=== PATIENT | male | born 1960 | race Two or more races ===

== ENCOUNTER 2019-10-26 13:31 | Emergency (ER) | payer BC ==
[~2019-10-26] VITALS: Ht 170.2 cm; Wt 72.6 kg
--- NOTE | 2019-10-26 13:46 | Emergency Room Report ---
History of Present Illness General Chief Complaint: Abdominal Pain Source: Patient Present Illness HPI Patient 59-year-old male presents after sudden onset of right-sided flank pain. Patient reports having acute onset of symptoms. Pain was located in the right lower abdomen. He reports having prior history of kidney stones. He also had prior right inguinal hernia surgery. Reports having increased pain after urinating. Denies any fever. Reports having severe pain to the right lower abdomen. This radiated to his testicle. Denies any hematuria or dysuria. He reports having allergy to penicillin. Allergies: Coded Allergies: PENICILLINS (Unverified Allergy, Unknown, 10/26/19) Uncoded Allergies: PENICILLIN (Allergy, Unknown, 10/26/19) Patient History Past Medical History: see triage record Reviewed Nursing Documentation: PMH: Agreed; PSxH: Agreed Nursing Documentation-PMH Past Medical History: No History, Except For Review of Systems All Other Systems: negative except mentioned in HPI Physical Exam Sp02 EP Interpretation: reviewed, normal General Appearance: normal inspection, well appearing, no apparent distress, alert, GCS 15 Head: atraumatic ENT: normal ENT inspection, hearing grossly normal, normal voice Neck: normal inspection, full range of motion, supple, no bony tend Respiratory: normal inspection, lungs clear, normal breath sounds, no respiratory distress, no retraction, no wheezing Cardiovascular #1: regular rate, rhythm, no edema Gastrointestinal: normal inspection, normal bowel sounds, non tender, soft, no guarding, no hernia Genitourinary: no CVA tenderness Musculoskeletal: normal inspection, back normal, normal range of motion Neurologic: alert, motor strength/tone normal, improvement rn III-XII nml as tested, EOM palsy, oriented x3, responsive, speech normal, normal inspection Psychiatric: normal inspection, judgement/insight normal, mood/affect normal Skin: no rash Medical Decision Making Diagnostic Impression: Primary Impression: Kidney stone on right side ER Course Patient presented for flank pain. Differential diagnosis included was not limited to pneumonia, renal stone, rib fracture, pulmonary embolism, ulcer, enteritis, pyelonephritis among others. Given the patient's acute onset of symptoms appears to be possibly kidney stone versus testicular pathology. Patient's because of complexity of patient's case laboratory tests and imaging studies were ordered.Per patient history had prior history of kidney stones. Given location of pain this is likely UVJ stone. Patient was given IV pain medications.CT imaging showed approximately 3 mm UVJ stone. Mild to moderate hydronephrosis. Patient was given Flomax as well as IV Toradol and morphine. He was noted to have improvement in his pain. Urinalysis showed some mild evidence of urinary infection. Patient appears to be stable for outpatient management. He was advised urology follow-up. This medical record is generated with [employer] network strategist software. There may be some network strategist discrepancies related to use of this software patient was advised to return if worse Labs Test 10/26/19 13:48 10/26/19 15:35 White Blood Count 9.5 K/UL (4.8-10.8) Red Blood Count 4.87 M/UL (4.70-6.10) Hemoglobin 15.0 G/DL (14.2-18.0) Hematocrit 43.3 % (42.0-52.0) Mean Corpuscular Volume 89 FL (80-99) Mean Corpuscular Hemoglobin 30.7 PG (27.0-31.0) Mean Corpuscular Hemoglobin Concent 34.5 G/DL (32.0-36.0) Red Cell Distribution Width 11.1 % (11.6-14.8) Platelet Count 225 K/UL (150-450) Mean Platelet Volume 9.0 FL (6.5-10.1) Neutrophils (%) (Auto) 50.0 % (45.0-75.0) Lymphocytes (%) (Auto) 37.2 % (20.0-45.0) Monocytes (%) (Auto) 8.3 % (1.0-10.0) Eosinophils (%) (Auto) 3.1 % (0.0-3.0) Basophils (%) (Auto) 1.4 % (0.0-2.0) Prothrombin Time 10.5 SEC (9.30-11.50) Prothromb Time International Ratio 1.0 (0.9-1.1) Activated Partial Thromboplast Time 23 SEC (23-33) Sodium Level 139 MMOL/L (136-145) Potassium Level 3.2 MMOL/L (3.5-5.1) Chloride Level 103 MMOL/L (98-107) Carbon Dioxide Level 24 MMOL/L (21-32) Anion Gap 12 mmol/L (5-15) Blood Urea Nitrogen 17 mg/dL (7-18) Creatinine 1.1 MG/DL (0.55-1.30) Estimat Glomerular Filtration Rate > 60 mL/min (>60) Glucose Level 127 MG/DL (74-106) Calcium Level 9.0 MG/DL (8.5-10.1) Total Bilirubin 0.4 MG/DL (0.2-1.0) Aspartate Amino Transf (AST/SGOT) 17 U/L (15-37) Alanine Aminotransferase (ALT/SGPT) 33 U/L (12-78) Alkaline Phosphatase 64 U/L (46-116) Total Protein 7.9 G/DL (6.4-8.2) Albumin 4.0 G/DL (3.4-5.0) Globulin 3.9 g/dL Albumin/Globulin Ratio 1.0 (1.0-2.7) Lipase 182 U/L (73-393) Urine Color Pale yellow Urine Appearance Clear Urine pH 7 (4.5-8.0) Urine Specific [place] 1.005 (1.005-1.035) Urine Protein Negative (NEGATIVE) Urine Glucose (UA) Negative (NEGATIVE) Urine Ketones Negative (NEGATIVE) Urine Blood 2+ (NEGATIVE) Urine Nitrite Negative (NEGATIVE) Urine Bilirubin Negative (NEGATIVE) Urine Urobilinogen Normal MG/DL (0.0-1.0) Urine Leukocyte Esterase 1+ (NEGATIVE) Urine RBC 2-4 /HPF (0 - 0) Urine WBC 2-4 /HPF (0 - 0) Urine Squamous Epithelial Cells Occasional /LPF Urine Bacteria Occasional /HPF (NONE) Status: improved Disposition: HOME, SELF-CARE Condition: Stable Scripts Trimethoprim/Sulfamethoxazole 160/800* (BACTRIM DS TABLET*) 1 Each Tablet 1 TAB ORAL Q12H, #14 TAB 0 Refills Prov: Gabriele Alvarado MD 10/26/19 Tamsulosin HCl (Flomax) 0.4 Mg Cap.er.24h 0.4 MG ORAL DAILY, #14 CAP Prov: Gabriele Alvarado MD 10/26/19 Ibuprofen* (MOTRIN*) 600 Mg Tablet 600 MG ORAL Q6H PRN for For Pain, #20 TAB 0 Refills Prov: Gabriele Alvarado MD 10/26/19 Hydrocodone Bit/Acetaminophen 5-325* (NORCO 5-325*) 1 Each Tablet 1 TAB ORAL Q4H PRN for For Pain, #12 TAB 0 Refills Prov: Gabriele Alvardao MD 10/26/19 Gabriele Alvarado MD Oct 26, 2019 13:46
[2019-10-26] MEDS ORDERED: Ketorolac 30mg Inj IV ONE (14:00)
[2019-10-26] MEDS ORDERED: Morphine Sulfate 4mg/ml Inj (IV USE ONLY) IVP ONE (14:00)
[2019-10-26 14:06] VITALS: BP 167/87
[2019-10-26 14:07] LABS: BASOPHILS % (AUTO) 1.4 % (0.0-2.0); EOSINOPHILS % (AUTO) 3.1 % (0.0-3.0); HEMATOCRIT 43.3 % (42.0-52.0); LYMPHOCYTES % (AUTO) 37.2 % (20.0-45.0); MEAN CORPUSCULAR VOLUME 89 FL (80-99); MONOCYTES % (AUTO) 8.3 % (1.0-10.0); PLATELET COUNT 225 K/UL (150-450); RED BLOOD COUNT 4.87 M/UL (4.70-6.10); RED CELL DISTRIBUTION WIDTH 11.1 % (11.6-14.8); WHITE BLOOD COUNT 9.5 K/UL (4.8-10.8)
--- NOTE | 2019-10-26 14:07 | NUR ---
ED Nurse Note:pt. came from home with abdominal pain nausea vomiting, crying in pain, A/Ox4 ambulatory, VSS, given pain meds and iv fluids
[2019-10-26 14:20] LABS: ANION GAP 12 mmol/L (5-15); BLOOD UREA NITROGEN 17 mg/dL (7-18); CARBON DIOXIDE 24 MMOL/L (21-32); CHLORIDE 103 MMOL/L (98-107); CREATININE 1.1 MG/DL (0.55-1.30); POTASSIUM 3.2 MMOL/L (3.5-5.1); SODIUM 139 MMOL/L (136-145)
[2019-10-26 14:25] LABS: ALANINE AMINOTRANSFERASE 33 U/L (12-78); ALKALINE PHOSPHATASE 64 U/L (46-116); ASPARTATE AMINO TRANSFERASE 17 U/L (15-37); BILIRUBIN,TOTAL 0.4 MG/DL (0.2-1.0)
--- NOTE | 2019-10-26 14:29 | NUR ---
ED Nurse Note:pt. went to CT scan
--- NOTE | 2019-10-26 14:30 | NUR ---
ED Nurse Note:pt is back from CT scan
[2019-10-26] MEDS ORDERED: IBUPROFEN600 MG ORAL (15:07)
[2019-10-26] MEDS ORDERED: BACTRIM DS TAB1 EAC1 ORAL (15:07)
[2019-10-26] MEDS ORDERED: FLOMAX0.4 MG ORAL (15:07)
[2019-10-26] MEDS ORDERED: NORCO 5-325 TA1 EACH ORAL (15:07)
[2019-10-26 15:35] VITALS: BP 145/78
--- NOTE | 2019-10-26 15:35 | NUR ---
ER DISCHARGE NOTE: Patient is cleared to be discharged per ERMD, pt is aox4, on room air, with stable vital signs. pt was given dc and prescription instructions, pt was able to verbalize understanding, pt id band and iv site removed without complications. pt is able to ambulate with steady gait. pt took all belongings.
--- NOTE | 2019-10-26 15:44 | Diagnostic Imaging Report ---
INDICATION: Abdominal pain TECHNIQUE: Continuous helical transaxial imaging of the abdomen and pelvis was obtained from the lung bases to the pubic symphysis. No intravenous contrast was administered. Coronal 2-D reformats were also obtained. Automatic Exposure Control was utilized. Total Dose length Product (DLP): 1100.[address] Dose Index Volume (CTDIvol): 18.2 mGy Comparison: none FINDINGS: Mild posterior basal reticulation demonstrated consistent with atelectasis. There is a small hiatal hernia. Evaluation of solid organs is limited on non contrast imaging. Liver: Normal Gallbladder/biliary system: No gallstones are identified. No intrahepatic or extrahepatic biliary ductal dilatation identified. Pancreas: Normal Spleen: Normal Kidneys: There is a 4 mm stone in the distal right ureter at the UVJ associated with mild to moderate hydronephrosis. The right kidney is malrotated. There is periureteral and perinephric stranding. Other punctate nonobstructive stones demonstrated within the calyces of the right kidney. The left kidney is unremarkable. Bones: Normal. There are diverticula throughout the colon without definite evidence of diverticulitis. The appendix is normal. IMPRESSION: 4 mm right UVJ stone with associated hydroureteronephrosis and perinephric/periureteral stranding. Multiple other nonobstructive stones in the right kidney. Diverticulosis of the colon. No evidence of acute diverticulitis. [facility] has communicated the preliminary results to the Emergency Department. Their findings are largely concordant with this report. The CT scanner at [facility] is accredited by the [employer] and the scans are performed using dose optimization techniques as appropriate to a performed exam including Automatic Exposure control.
[2019-10-26 15:51] LABS: APPEARANCE,URINE CLEAR; BILIRUBIN, URINE NEGATIVE (NEGATIVE); COLOR,URINE PALE YELLOW; GLUCOSE, URINE (UA) NEGATIVE (NEGATIVE); KETONES,URINE NEGATIVE (NEGATIVE); LEUKOCYTE ESTERASE ,URINE 1+ (NEGATIVE); NITRITE,URINE NEGATIVE (NEGATIVE); PH,URINE 7 (4.5-8.0); PROTEIN,URINE NEGATIVE (NEGATIVE); UROBILINOGEN,URINE NORMAL MG/DL (0.0-1.0)
[2019-10-26] MEDS ORDERED: Tamsulosin 0.4mg cap ORAL SCH (21:00)
== END 2019-10-26 15:40 | disposition home or self-care (01) ==
LOC: EMR 14:19
DX: N20.0 Calculus of kidney (principal); Z88.0 Allergy status to penicillin; N13.2 Hydronephrosis with renal and ureteral calculous obstruction; K57.90 Diverticulosis of intestine, part unspecified, without perforation or abscess without bleeding
CPT/HCPCS: 36415; 74176; 80053; 81003; 83690; 85025; 85610; 85730; 96361; 96374; 96375; 99284; J1885; J2270; J2405; J7030